=== PATIENT | female | born 1980 | race Caucasian/White ===

== ENCOUNTER → 2019-06-10 | Outpatient (CLI) | payer BC ==
[~2019-06-10] VITALS: Ht 152.4 cm; Wt 56.7 kg
[~2019-06-10] MED LIST: ABILIFY 2 MG2 M1 PO; COLACE100 MG PO; CYMBALTA60 MG PO; ENBRACE HR SOF1 EACH PO; FLOMAX0.4 MG PO; HYDROMORPHONE ER8 MG PO; NORCO 5-325 TA1 EAC1 PO; UROCIT-K10 ME1 PO; ZOFRAN4 MG PO; ZOLOFT100 MG PO
--- NOTE | ~2019-06-10 | HPC ---
[facility] [place] [address] PAIN MANAGEMENT CONSULTATION Name: MANGO ERAZO Room #: REG TENISHA VillegasMarkLindaMark#: [id number] Admission: 06/10/19 Attend Phys: Yoel Hunter MD Discharge: Date of : 82 Report #: [id number] THIS REPORT FOR: cc: COURTNEY BELL Physician not on staff Yoel Hunter MD ~ CC: SHARMILA ALEXANDER Physician staff Yoel Younger MD DATE OF SERVICE: 06/10/2019 CHIEF COMPLAINT: Bilateral flank and costovertebral low back pain. SUBJECTIVE: Dr. Younger asked us to see the patient today for chronic pain. I did see her once in 2013 when she was hospitalized for urosepsis, the only time she reports that she has been hospitalized for her kidney stone issues. Over the course of the last 20 months, she has had relapsing episodes of severe renal colic causing her to go to the Emergency Room multiple times. She reports that she has been in and out of the Emergency Room 15 times in the last year. The pain has been so severe that she has developed increasing depression and has at times been suicidal by her report today. The pains began in earnest shortly after childbirth in 2018 when she was also suffering from severe depression. The depression and the increase in pain seem to have gone hand in hand. She has been following with Dr. Brooks Dimas, her psychiatrist who has been providing both antidepressant medication and pain medication for her over the course of the last 3 months. She reports that when the pain is severe, she cannot function, then it is bad enough to send her repeatedly to the Emergency Room. Because of her multiple visits, she has been labeled she feels as a drug seeker and she tells me this tearfully. She reports that only one medication seems to be effective for her and that is not surprisingly Dilaudid, both intravenously and orally. All other opioids do not seem to be helpful. She reports that after she has Dilaudid either intravenously or orally, the pain subsides rapidly, but the duration of response is about 3-4 hours. I have checked her prescription drug monitoring program information and she has been receiving medication about every 2 weeks since 03/18/[address] Dimas. It first began as hydromorphone 4 mg 10 tablets, then 30 tablets and since 04/14/2019, she has been receiving hydromorphone 8 mg tablets every [address] [address] PAIN MANAGEMENT CONSULTATION Name: MANGO ERAZO Room #: REG CLI [facility].#: [id number] Admission: 06/10/19 Attend Phys: Yoel Hunter MD Discharge: Date of : 82 Report #: [id number] She uses 2 tablets per day typically, although there are days where she has no pain. She tells me it is perhaps 1-2 days per week. MEDICATIONS: Include hydromorphone 8 mg, Cymbalta 60 mg, Abilify 2 mg, potassium citrate 40 mg b.i.d. and Colace. She is also on tamsulosin. ALLERGIES: None. PAST MEDICAL HISTORY: Significant for NLTH-mini spontaneously passed stones since age 17 with significant flank pain, endometriosis, gestational diabetes and I note that her most recent renal panel included a glucose of 159, history of appendectomy, history of surgery for deviated septum, the single episode of urosepsis at age 37. SOCIAL HISTORY: She was working until just recently and lost her job because of pain. She is angry that she was unable to receive notes from physicians describing her condition and feels that this is in part why she lost her job in March. She is . Her is supportive. They live in [place] with their 7-year-old son and [id number]. She denies use of alcohol, but smokes a half pack of cigarettes a day and has done so for the last 16 years. She did complete a pain impact score and her pain impact score is 45, scoring highest for mood 8/10, work 8/10, sleep 8/10 and enjoyment of life 9/10. Significant impact of her pain on a day-to-day activities. She only sleeps about 4 hours a night. REVIEW OF SYSTEMS: Positive for decreased appetite, fever, night sweats, fatigue, earaches, loss of appetite, constipation, peptic ulcer, burning on urination, nocturia, blood in urine, incontinence, dribbling, kidney stones, sexual difficulty, irregular periods, depression and insomnia. PHYSICAL EXAMINATION: GENERAL: She is a tearful, emotional, depressed female. VITAL SIGNS: Blood pressure 116/84, heart rate 89, respirations 14, O2 sat 98. She is 5 feet tall, 125 pounds, BMI is 24. MUSCULOSKELETAL: Otherwise, essentially normal other than flank pain bilaterally. IMPRESSION: 1. Multiple and recurrent kidney stones with severe flank pain, intermittent, but now becoming more regular with chronic pain. 2. Ongoing chronic use of hydromorphone. 3. Severe depression with suicidal ideation in the past. She is not suicidal at this point. 4. Tobaccoism. RECOMMENDATIONS: We need to discuss her case with Dr. Dimas. There certainly is [address] [address] PAIN MANAGEMENT CONSULTATION Name: MANGO ERAZO Room #: REG Ayla Ang.#: [id number] Admission: 06/10/19 Attend Phys: Yoel Hunter MD Discharge: Date of : 82 Report #: [id number] a significant component of depression to her chronic pain syndrome, which may be in part driving her need for opioid use on such a regular basis. I do not think she has valid reason for visceral somatic pain with recurring kidney stones. Hydromorphone is a rapid acting opioid that is highly referred by adducts and so there is certainly stigma associated with its use. The patient who requests Dilaudid specifically are often labeled and I can see why she would be upset. It also does increase our concern that she would be at risk of developing addictive behaviors if we continue to provide it for her at ever increasing doses as we have seen over the last 3 months. If she needs an ongoing pain medication and an opioid is considered, it might be best to provide her with baseline opioid by patch like buprenorphine patch rather than respond with rapid acting short acting hydromorphone for what is becoming daily pain. Certainly, ongoing counseling and treatment for her depression may go a long way to helping with her chronic pain issues. We also discussed wellness behaviors including tobacco and seeking out other ways to prevent the development of kidney stones. She is getting a second opinion from [facility]. Followup visit scheduled in a month. By: [id number] Yoel Hunter MD /nt
[2019-06-10 13:39] VITALS: BP 116/84
--- NOTE | 2019-06-10 13:40 | NUR ---
Pain Clinic Assessment: 1. History of Osteoarthritis: Not Applicable History of Rheumatoid Arthritis: Not Applicable 2. Height: 5 ft. 0 in. 152.4 cm. Weight: 125.0 lb. oz. 56.700 kg. Patient's BMI: 24.4 3. Vital Signs: BP: 116/84 Pulse: 89 Resp: 14 Temp: 02 Sat: 98 ECG Mon: 4. Pain Intensity: 6 5. Fall Risk: Dizziness: Needs help standing or walking: Fallen in the last 3 months: Fall risk comments: 6. Patient on Blood Thinner: None 7. History of Hypertension: N 8. Opioid Therapy greater than 6 weeks: Y Opiate Contract Signed: 9. Risk Assessment Tool Provided: 10. Functional Assessment Tool: 11. Recreational Drug Use: Never Drug Type: Tobacco Use: Current Every Day Smoker Tobacco Type: Cigarettes Amount or Packs/day: 1/2 How Many Years: 16 Alcohol Use: No Frequency: Quant:
== END ==
LOC: PAIN 06:53
DX: N20.0 Calculus of kidney (principal); M54.5 Low back pain; G89.29 Other chronic pain; F32.9 Major depressive disorder, single episode, unspecified; F17.200 Nicotine dependence, unspecified, uncomplicated; Z87.442 Personal history of urinary calculi

== ENCOUNTER 2020-05-25 14:52 | Emergency (ER) | payer BC, OTHER ==
[~2020-05-25] VITALS: Ht 152.4 cm; Wt 63.5 kg
[2020-05-25] MEDS ORDERED: ABILIFY10 MG PO (15:17)
[2020-05-25] MEDS ORDERED: KLOR-CON 1010 MEQ PO (15:18)
[2020-05-25] MEDS ORDERED: DULOXETINE HCL60 MG PO (15:18)
[2020-05-25] MEDS ORDERED: CATAPRES0.1 MG PO (15:19)
[2020-05-25] MEDS ORDERED: NEURONTIN 300M300 M2 PO (15:19)
[2020-05-25 15:28] LABS: URINE BILIRUBIN NEGATIVE (Negative); URINE BLOOD NEGATIVE (Negative); URINE CLARITY CLEAR; URINE COLOR YELLOW; URINE GLUCOSE-RANDOM* NEGATIVE (Negative); URINE KETONES NEGATIVE (Negative); URINE LEUKOCYTES-REFLEX NEGATIVE (Negative); URINE NITRITE-REFLEX NEGATIVE (Negative); URINE PROTEIN (DIPSTICK) NEGATIVE (Negative); URINE SPECIFIC GRAVITY 1.015 (1.005-1.035); URINE UROBILINOGEN 0.2 E.U./dl (0.2-1.0)
[2020-05-25 15:38] LABS: ABSOLUTE NEUTROPHILS 3.5 thou/uL (1.4-8.2); BASOPHILS 1.1 % (0.0-2.0); EOSINOPHILS 8.6 % (0.0-3.0); HEMATOCRIT 42.5 % (37.0-47.0); HEMOGLOBIN 14.3 gm/dL (12.0-15.0); LYMPHOCYTES 40.5 % (24.0-44.0); MCH 29.3 pg (26.0-34.0); MCHC 33.5 g/dL (28.0-37.0); MCV 87.3 fL (80.0-100.0); MONOCYTES 7.7 % (1.0-8.0); PLATELET COUNT 243 thou/uL (150-400); POLYS 42.1 % (36.0-66.0); RBC 4.87 mil/uL (4.20-5.00); RDW 13.7 % (10.5-14.5); WBC 8.3 thou/uL (4.0-11.0)
[2020-05-25 15:39] LABS: CALCIUM 8.9 mg/dL (8.5-10.1); CREATININE 0.9 mg/dL (0.6-1.0); POTASSIUM 3.8 mmol/L (3.5-5.1)
[2020-05-25 15:45] LABS: ALBUMIN 3.3 g/dL (3.4-5.0); TOTAL BILIRUBIN 0.3 mg/dL (0.2-1.0); TOTAL PROTEIN 6.6 g/dL (6.4-8.2)
[2020-05-25] MEDS ORDERED: ESTRADIOL TRANSDERM (16:02)
[2020-05-25 16:35] VITALS: BP 109/67
== END 2020-05-25 16:43 | disposition home or self-care (01) ==
LOC: ER 14:52
PROVIDERS: Nurse Practitioner
DX: R10.9 Unspecified abdominal pain (principal); R60.0 Localized edema; Z79.899 Other long term (current) drug therapy; Z90.49 Acquired absence of other specified parts of digestive tract; Z87.442 Personal history of urinary calculi